=== PATIENT | male | born 1975 | race Two or more races ===

== ENCOUNTER 2020-04-09 18:19 | Emergency (ER) | payer SELFPAY ==
[~2020-04-09] VITALS: Ht 162.6 cm; Wt 84.4 kg
[2020-04-09] MEDS ORDERED: HYDROcodone/Acetamin 10/325 tab ORAL ONE (18:45)
[2020-04-09] MEDS ORDERED: Ketorolac 60mg Inj IM ONE (18:45)
[2020-04-09] MEDS ORDERED: NORCO 5-325 TA1 EAC1 ORAL (19:00)
[2020-04-09] MEDS ORDERED: INDOMETHACIN50 MG PO (19:00)
[2020-04-09 19:14] VITALS: BP 132/78
--- NOTE | 2020-04-09 19:17 | Emergency Room Report ---
History of Present Illness General Chief Complaint: Lower Extremity Injury Source: Patient Present Illness HPI Patient presents with complaints of right-sided knee pain He describes it as having arthritis patient has had several work-up in the past reports that he was negative for gout And was told that he had arthritis in the knee Patient reports that he was doing more labor-intensive work on Thursday and feels that this exacerbated the area denies any other fall or trauma to it denies any calf pain denies any swelling in the calf area otherwise denies any fevers or chills Allergies: Coded Allergies: No Known Allergies (Unverified , 04/09/20) COVID-19 Screening Contact w/high risk pt: No Recent Travel to affected area: No Experienced COVID-19 symptoms?: No COVID-19 Testing 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 Patient History Past Medical History: see triage record Reviewed Nursing Documentation: PMH: Agreed; PSxH: Agreed Review of Systems All Other Systems: negative except mentioned in HPI Physical Exam Vital Signs Date Time Temp Pulse Resp B/P (MAP) Pulse Ox O2 Delivery O2 Flow Rate FiO2 04/09/20 18:29 98.4 93 20 121/80 (94) 98 Room Air Sp02 EP Interpretation: reviewed, normal General Appearance: well appearing, no apparent distress Head: normocephalic, atraumatic Eyes: bilateral eye PERRL, bilateral eye EOMI ENT: normal ENT inspection, hearing grossly normal Neck: supple Respiratory: lungs clear, no respiratory distress, no retraction Cardiovascular #1: regular rate, rhythm Gastrointestinal: non tender, soft Musculoskeletal: swelling - Noted to the right knee there is mild effusion noted clinically, no obvious erythema neurovascularly intact Neurologic: alert, oriented x3 Skin: other - As above Lymphatic: no adenopathy Medical Decision Making Diagnostic Impression: Primary Impression: knee effusion ER Course Multiple differentials including but not limited to septic joint, gout, arthralgia entertained patient has history and evidence here Consistent with effusion which is likely consistent with arthralgia patient reports that he has already had testing to rule out gout At this time patient was treated symptomatically and will have initial conservative outpatient trial Last Vital Signs Date Time Temp Pulse Resp B/P (MAP) Pulse Ox O2 Delivery O2 Flow Rate FiO2 04/09/20 19:13 98.5 04/09/20 18:29 93 20 121/80 (94) 98 Room Air Status: improved Disposition: HOME, SELF-CARE Condition: Improved Scripts Hydrocodone Bit/Acetaminophen 5-325* (NORCO 5-325 TABLET*) 1 Each Tablet 1 TAB ORAL Q8HR PRN for FOR PAIN, #12 TAB 0 Refills Prov: Carmelo Rojas DO 04/09/20 Indomethacin (INDOMETHACIN) 50 Mg Capsule 50 MG PO TID, #20 CAP Prov: Carmelo Rojas DO 04/09/20 Referrals: [facility]. [facility] Patient Instructions: Knee Effusion, [id number] Additional Instructions: Patient is provided with the discharge instructions notified to follow up with primary doctor in the next 2-3 days otherwise return to the er with any worsening symptoms. Please note that this report is being documented using [employer] technology. This can lead to erroneous entry secondary to incorrect interpretation by the dictating instrument. Carmelo Rojas DO Apr 09, 2020 19:17
== END 2020-04-09 19:15 | disposition home or self-care (01) ==
LOC: EMR 18:40
DX: M25.461 Effusion, right knee (principal)
CPT/HCPCS: 96372; 99283